=== PATIENT | female | born 1980 | race Caucasian/White ===

== ENCOUNTER 2017-11-07 18:11 | Emergency (ER) | payer OTHER ==
[~2017-11-07] VITALS: Ht 167.6 cm; Wt 90.7 kg
[~2017-11-07 18:11] MED LIST: ADVAIR 100-501 EACH INH; AMITRIPTYLINE H25 MG PO; BUSPIRONE HCL10 MG PO; DAY TIME COLD-1 EAC1 PO; FLUOXETINE HCL40 MG PO; GABAPENTIN400 MG PO; GUAIFENESIN AC473 ML PO; HYDROXYZINE PAM50 MG PO; MIGRANAL1 ML NAS; MUCINEX1200 MG PO; NEURONTIN300 MG PO; QUETIAPINE FUM200 MG PO; RISPERIDONE1 MG PO; STRATTERA80 MG PO; SYMBICORT 16010.2 GM INH; TOPIRAMATE50 MG PO; TRAZODONE HCL100 MG PO; ZOFRAN4 MG PO
[2017-11-07] MEDS ORDERED: ACETAMINOPHEN-1 EAC1 PO (19:27)
[2017-11-07] MEDS ORDERED: CRUTCH1 EACH (19:28)
== END 2017-11-07 19:36 | disposition home or self-care (01) ==
LOC: ED 18:11
DX: S93.601A Unspecified sprain of right foot, initial encounter (principal); X58.XXXA Exposure to other specified factors, initial encounter; G43.909 Migraine, unspecified, not intractable, without status migrainosus; J45.909 Unspecified asthma, uncomplicated; F41.9 Anxiety disorder, unspecified; Z88.0 Allergy status to penicillin; Z88.8 Allergy status to other drugs, medicaments and biological substances; Z88.1 Allergy status to other antibiotic agents; Z79.899 Other long term (current) drug therapy
CPT/HCPCS: 73630; 99283